=== PATIENT | female | born 1995 | race Caucasian/White ===

== ENCOUNTER 2019-09-29 19:01 | Inpatient (IN) ==
[2019-09-29 12:48] LABS: Protein/Creatinine Ratio,Urine 1.88 mg/mg (0.00-0.20)
[2019-09-29 12:52] LABS: Basophils % 0.5 %; Eosinophils % 0.2 %; Hematocrit 30.7 % (35.3-44.9); Immature Granulocytes % 0.8 % (0-4); Lymphocytes # 1.4 K/mcL (0.6-4.6); Lymphocytes % 22.4 %; Mean Corpuscular HGB Conc 32.6 g/dL (31.6-35.5); Mean Corpuscular Hemoglobin 30.8 pg (28.0-33.3); Mean Corpuscular Volume 94.5 fL (83.0-100.0); Mean Platelet Volume 11.5 fL (9.4-12.4); Monocytes # 0.6 K/mcL (0.0-1.3); Monocytes % 8.8 %; Neutrophils # 4.3 K/mcL (1.6-8.9); Platelet Count 185 K/mcL (140-400); Red Blood Count 3.25 M/mcL (3.82-4.97); Segmented Neutrophils % 67.3 %; White Blood Count 6.3 K/mcL (4.3-11.1)
[2019-09-29 12:59] LABS: Alanine Aminotransferase 5 Units/L (7-52); Aspartate Amino Transferase 13 Units/L (13-39); BUN/Creatinine Ratio 9 (6-26); Blood Urea Nitrogen 6 mg/dL (6-20); Lactate Dehydrogenase 154 Units/L (140-271); Uric Acid 5.4 mg/dL (2.3-7.6); eGFR For African Americans > 60 (> 60); eGFR For Non-African Americans > 60 (> 60)
[2019-09-29 13:01] LABS: Amorphous Sediment,Urine Few per hpf (None-Few); Bacteria,Urine Many per hpf (None-Few); Bilirubin,Urine Negative (Negative); Blood,Urine Trace (Negative); Clarity,Urine Ex.Turbid (Clear); Color,Urine Yellow (Yellow); Glucose,Urine (UA) Normal (Normal); Hyaline Casts,Urine Few per lpf (None Seen); Ketones,Urine Negative (Negative); Leukocyte Esterase,Urine Large (Negative); Nitrite,Urine Negative (Negative); PH,Urine 6.5 pH Units (5.0-8.0); Protein,Urine 30 mg/dL (Neg-Trace); RBC,Urine 30-50 per hpf (0-3); Specific Gravity,Urine < 1.005 (1.010-1.025); Squamous Epithelial Cell,Urine Moderate per hpf (None-Few); Urobilinogen,Urine Normal (Normal); WBC,Urine TNTC per hpf (0-3)
[2019-09-29] MEDS: Betamethasone Acet/SodPhos 30 MG/5 ML VIAL IM SCH (18:29)
[~2019-09-29 19:01] MED LIST: *HR* Labetalol 20 MG/4 ML SYRINGE IVP STA; Azithromycin 500 MG in 0.9 % Sodium Chloride 250 ML IVPB ONE; Famotidine 20 MG/2 ML VIAL IVP PRN; Metoclopramide 10 MG/2 ML VIAL IVP PRN; Naloxone 0.4 MG/ML INJ IVP PRN; Ondansetron 4 MG/2 ML VIAL IVP PRN
[2019-09-29] MEDS ORDERED: Calcium Gluconate 1,000 MG/10 ML VIAL IVP PRN (19:04)
[2019-09-29] MEDS ORDERED: Penicillin G Potassium 5,000,000 UNIT in 0.9 % Sodium Chloride Mini Bag 100 ML IVPB ONE (19:06)
[2019-09-29] MEDS: Ringers Solution, Lactated 1,000 ML ONE (20:09)
[2019-09-29] MEDS: Magnesium Sulf 20 gm/SW 500mL 20 GM/500 ML IV.SOLN IVC SCH (20:18)
[2019-09-29] MEDS: Oxytocin 20 units/ LR 1000 mL 20 UNIT/1,000 ML BAG IVC SCH (20:30)
[2019-09-29] MEDS ORDERED: Oxytocin 20 units/ LR 1000 mL 20 UNIT/1,000 ML BAG IVC ONE (20:33)
[2019-09-29 23:29] LABS: Basophils % 0.3 %; Hematocrit 35.5 % (35.3-44.9); Immature Granulocytes % 1.1 % (0-4); Lymphocytes # 0.8 K/mcL (0.6-4.6); Lymphocytes % 9.5 %; Mean Corpuscular HGB Conc 32.7 g/dL (31.6-35.5); Mean Corpuscular Volume 94.9 fL (83.0-100.0); Mean Platelet Volume 11.2 fL (9.4-12.4); Monocytes # 0.1 K/mcL (0.0-1.3); Monocytes % 0.7 %; Neutrophils # 7.8 K/mcL (1.6-8.9); Platelet Count 215 K/mcL (140-400); Red Blood Count 3.74 M/mcL (3.82-4.97); Segmented Neutrophils % 88.4 %; White Blood Count 8.9 K/mcL (4.3-11.1)
[2019-09-29 23:30] LABS: Hemoglobin 11.6 g/dL (11.5-15.4)
[2019-09-29 23:48] LABS: Alanine Aminotransferase 5 Units/L (7-52); Aspartate Amino Transferase 15 Units/L (13-39); BUN/Creatinine Ratio 9 (6-26); Blood Urea Nitrogen 5 mg/dL (6-20); Lactate Dehydrogenase 185 Units/L (140-271); Uric Acid 5.5 mg/dL (2.3-7.6); eGFR For African Americans > 60 (> 60); eGFR For Non-African Americans > 60 (> 60)
[2019-09-29] MEDS: Penicillin G Potassium 2,500,000 UNIT/105 ML UNIT IVPB SCH (23:50)
[2019-09-30] MEDS: Penicillin G Potassium 2,500,000 UNIT/105 ML UNIT IVPB SCH ×5 (03:48→21:40)
[2019-09-30] MEDS ORDERED: Acetaminophen 325 MG TABLET PO ONE ×2 (04:13→09:28)
[2019-09-30] MEDS: Magnesium Sulf 20 gm/SW 500mL 20 GM/500 ML IV.SOLN IVC SCH (07:57)
[2019-09-30] MEDS ORDERED: miSOPROStoL 25 MCG TABLET PO SCH ×2 (09:22→09:30)
[2019-09-30] MEDS: miSOPROStoL 25 MCG TABLET PO PRN ×2 (09:34→14:30)
[2019-09-30] MEDS ORDERED: Ringers Solution, Lactated 1,000 ML ONE ×2 (11:22→17:01)
[2019-09-30] MEDS ORDERED: Ropivacaine/PF 0.2% 20 ML VIAL ONE (15:54)
[2019-09-30] MEDS ORDERED: *HR* FentaNYL (PF) 100 MCG/2 ML VIAL ONE (15:54)
[2019-09-30] MEDS ORDERED: Epidural Premix (fent/bupiv) 110 ML EP ONE (16:14)
[2019-09-30] MEDS ORDERED: EPHEDrine 50 MG/ML VIAL IVP PRN (16:26)
[2019-09-30] MEDS ORDERED: Epidural Premix (fent/bupiv) 110 ML EP SCH (16:30)
[2019-09-30] MEDS ORDERED: miSOPROStoL 25 MCG TABLET PO PRN (18:38)
[2019-09-30] MEDS ORDERED: Betamethasone Acet/SodPhos 30 MG/5 ML VIAL IM SCH (19:30)
[2019-09-30] MEDS: Betamethasone Acet/SodPhos 30 MG/5 ML VIAL IM SCH (19:36)
[2019-09-30] MEDS: Oxytocin 20 units/ LR 1000 mL 20 UNIT/1,000 ML BAG IVC SCH (23:40)
[2019-10-01] MEDS ORDERED: Ringers Solution, Lactated 1,000 ML ONE ×2 (00:29→17:51)
[2019-10-01] MEDS: Penicillin G Potassium 2,500,000 UNIT/105 ML UNIT IVPB SCH (01:40)
[2019-10-01] MEDS: Magnesium Sulf 20 gm/SW 500mL 20 GM/500 ML IV.SOLN IVC SCH (02:40)
[2019-10-01] MEDS ORDERED: Magnesium Sulf 20 gm/SW 500mL 20 GM/500 ML IV.SOLN IVC SCH (07:23)
[2019-10-01] MEDS ORDERED: Benzocaine/Menthol 56 GM AEROSOL SPRAY TP PRN (07:23)
[2019-10-01] MEDS ORDERED: Oxytocin 20 units/ LR 1000 mL 20 UNIT/1,000 ML BAG IVC SCH (07:23)
[2019-10-01] MEDS ORDERED: Lanolin 7 G OINT...G. TP PRN (07:23)
[2019-10-01] MEDS: Prenatal Vit/FA 1 EACH TABLET PO SCH (08:07)
[2019-10-01] MEDS: Ringers Solution, Lactated 1,000 ML ONE ×2 (08:07→17:56)
[2019-10-01] MEDS ORDERED: Acetaminophen 325 MG TABLET PO SCH (12:00)
[2019-10-01] MEDS ORDERED: Ibuprofen 600 MG TABLET PO SCH (12:00)
[2019-10-01] MEDS ORDERED: Ringers Solution, Lactated 1,000 ML IVC SCH (18:00)
[2019-10-02 06:39] LABS: Basophils % 0.2 %; Hematocrit 28.5 % (35.3-44.9); Hemoglobin 9.3 g/dL (11.5-15.4); Immature Granulocytes % 1.4 % (0-4); Lymphocytes # 2.6 K/mcL (0.6-4.6); Lymphocytes % 19.6 %; Mean Corpuscular HGB Conc 32.6 g/dL (31.6-35.5); Mean Corpuscular Hemoglobin 31.1 pg (28.0-33.3); Mean Corpuscular Volume 95.3 fL (83.0-100.0); Monocytes # 0.8 K/mcL (0.0-1.3); Monocytes % 6.1 %; Neutrophils # 9.6 K/mcL (1.6-8.9); Nucleated Red Blood Cells 0.2 /100 WBC (0); Platelet Count 230 K/mcL (140-400); Red Blood Count 2.99 M/mcL (3.82-4.97); Red Cell Distribution Width 12.5 % (11.5-14.5); Segmented Neutrophils % 72.7 %; White Blood Count 13.2 K/mcL (4.3-11.1)
[2019-10-02 06:58] LABS: Alanine Aminotransferase 8 Units/L (7-52); Aspartate Amino Transferase 23 Units/L (13-39); BUN/Creatinine Ratio 10 (6-26); Blood Urea Nitrogen 7 mg/dL (6-20); Lactate Dehydrogenase 240 Units/L (140-271); Uric Acid 6.2 mg/dL (2.3-7.6); eGFR For African Americans > 60 (> 60); eGFR For Non-African Americans > 60 (> 60)
[2019-10-02] MEDS: Prenatal Vit/FA 1 EACH TABLET PO SCH (07:34)
[2019-10-03] MEDS: Prenatal Vit/FA 1 EACH TABLET PO SCH (07:49)
[2019-10-03 08:04] VITALS: BP 151/92
== END 2019-10-03 09:44 | disposition home or self-care (01) | DRG 788 ==
LOC: 1NENULAB → 1NENUOBS 10-01 06:32
PROVIDERS: ADMIT Obstetrics & Gynecology; ATTEND Obstetrics & Gynecology

== ENCOUNTER 2021-12-09 17:44 | Inpatient (IN) ==
[~2021-12-09 17:44] MED LIST changes: -*HR* Labetalol 20 MG/4 ML SYRINGE IVP STA; +*HR* Nalbuphine 10 MG/ML AMPUL IV PRN; -Azithromycin 500 MG in 0.9 % Sodium Chloride 250 ML IVPB ONE; +Azithromycin 500 MG in 0.9 % Sodium Chloride 250 ML IVPB PRN; +EPHEDrine 50 MG/ML VIAL IVP PRN; +Lidocaine 1% 20 ML MDV INFILT PRN
[2021-12-09] MEDS ORDERED: Epidural Premix (fent/bupiv) 110 ML EP SCH (17:45)
[2021-12-09] MEDS ORDERED: Ringers Solution, Lactated 1,000 ML IVC SCH (17:45)
[2021-12-09] MEDS ORDERED: Oxytocin 30 UNIT/503 ML BAG IVC SCH (18:00)
[2021-12-09 18:02] LABS: Basophils % 0.3 %; Eosinophils % 0.3 %; Hematocrit 31.1 % (35.3-44.9); Immature Granulocytes % 0.4 % (0-4); Lymphocytes # 1.7 K/mcL (0.6-4.6); Lymphocytes % 24.5 %; Mean Corpuscular HGB Conc 32.2 g/dL (31.6-35.5); Mean Corpuscular Volume 90.1 fL (83.0-100.0); Mean Platelet Volume 10.7 fL (9.4-12.4); Monocytes # 0.4 K/mcL (0.0-1.3); Monocytes % 6.5 %; Neutrophils # 4.6 K/mcL (1.6-8.9); Platelet Count 239 K/mcL (140-400); Red Blood Count 3.45 M/mcL (3.82-4.97); Red Cell Distribution Width 14.3 % (11.5-14.5); White Blood Count 6.8 K/mcL (4.3-11.1)
[2021-12-09] MEDS ORDERED: Oxytocin 30 UNIT/503 ML BAG IVC ONE (18:22)
[2021-12-09] MEDS ORDERED: Ringers Solution, Lactated 1,000 ML ONE (18:23)
[2021-12-09 18:29] LABS: Alanine Aminotransferase 9 Units/L (7-52); Aspartate Amino Transferase 17 Units/L (13-39); BUN/Creatinine Ratio 13 (6-26); Blood Urea Nitrogen 9 mg/dL (6-20); Lactate Dehydrogenase 159 Units/L (140-271); Uric Acid 4.5 mg/dL (2.3-7.6)
[2021-12-09 20:06] LABS: Protein/Creatinine Ratio,Urine 0.1 mg/mg (0.00-0.20)
[2021-12-09 20:22] LABS: Amphetamine Screen,Urine Negative ng/mL (Cutoff=1000); Barbiturate Screen,Urine Negative ng/mL (Cutoff=200); Benzodiazepines Screen,Urine Negative ng/mL (Cutoff=200); Cannabinoid Screen,Urine Negative ng/mL (Cutoff = 50); Cocaine Screen,Urine Negative ng/mL (Cutoff= 300); Opiate Screen,Urine Negative ng/mL (Cutoff=300); Phencyclidine Screen,Urine Negative ng/mL (Cutoff=25)
[2021-12-10] MEDS ORDERED: Ondansetron ODT 4 MG TAB.RAPDIS SL PRN ×2 (03:02→06:00)
[2021-12-10] MEDS ORDERED: Benzocaine/Menthol 56 GM AEROSOL SPRAY TP PRN (03:02)
[2021-12-10] MEDS ORDERED: OXYTOCIN/RINGERS LACTATE 10 UNIT/166.6 ML BAG IVC ONE ×2 (03:02→05:51)
[2021-12-10] MEDS ORDERED: Lanolin 7 G OINT...G. TP PRN ×2 (03:02→05:51)
[2021-12-10] MEDS ORDERED: Measles/Mumps/Rubella Vacc 0.5 ML VIAL SQ PRN ×2 (03:02→05:51)
[2021-12-10] MEDS ORDERED: Rho Immune Globulin 1,500 UNIT SYRINGE IM PRN ×2 (03:02→05:51)
[2021-12-10] MEDS ORDERED: Oxytocin 30 UNIT/503 ML BAG IVC SCH ×3 (03:15→05:51)
[2021-12-10] MEDS ORDERED: Acetaminophen 325 MG TABLET PO SCH (03:15)
[2021-12-10] MEDS: Ibuprofen 400 MG TABLET PO ONE ×2 (03:45→03:47)
[2021-12-10] MEDS ORDERED: Naloxone 0.4 MG/ML INJ IVP PRN (05:51)
[2021-12-10] MEDS ORDERED: Lidocaine 1% 20 ML MDV INFILT PRN (05:51)
[2021-12-10] MEDS ORDERED: Ondansetron 4 MG/2 ML VIAL IVP PRN (06:00)
[2021-12-10] MEDS ORDERED: Ibuprofen 600 MG TABLET PO SCH (06:03)
[2021-12-10] MEDS: Benzocaine/Menthol 56 GM AEROSOL SPRAY TP PRN (07:49)
[2021-12-10] MEDS: Prenatal Vit/FA 1 EACH TABLET PO SCH (07:49)
[2021-12-10] MEDS ORDERED: Prenatal Vit/FA 1 EACH TABLET PO SCH (09:00)
[2021-12-10] MEDS: Acetaminophen 325 MG TABLET PO SCH ×2 (14:15→22:45)
[2021-12-10] MEDS: Ibuprofen 600 MG TABLET PO SCH ×2 (14:16→22:44)
[2021-12-10 20:53] VITALS: O2SAT 100
[2021-12-11] MEDS: Acetaminophen 325 MG TABLET PO SCH (04:02)
[2021-12-11] MEDS: Ibuprofen 600 MG TABLET PO SCH (04:02)
[2021-12-11 07:13] VITALS: BP 121/81; PULSE 65; TEMP 98.3
[2021-12-11] MEDS: Prenatal Vit/FA 1 EACH TABLET PO SCH (08:42)
[2021-12-11] MEDS: Benzocaine/Menthol 56 GM AEROSOL SPRAY TP PRN (08:43)
== END 2021-12-11 12:50 | disposition home or self-care (01) | DRG 807 ==
LOC: 1NENULAB → 1NENUOBS 12-10 05:45
PROVIDERS: ADMIT Advanced Practice Midwife; ATTEND Advanced Practice Midwife

== ENCOUNTER 2021-12-16 22:47 | Inpatient (IN) ==
[2021-12-17] MEDS ORDERED: Ringers Solution, Lactated 1,000 ML ONE ×2 (01:03→13:33)
[2021-12-17] MEDS ORDERED: Calcium Gluconate 1,000 MG/10 ML VIAL IVP PRN (01:09)
[2021-12-17] MEDS ORDERED: Benzocaine/Menthol 56 GM AEROSOL SPRAY TP PRN (01:10)
[2021-12-17] MEDS ORDERED: Lanolin 7 G OINT...G. TP PRN (01:10)
[2021-12-17] MEDS ORDERED: Ondansetron ODT 4 MG TAB.RAPDIS SL PRN (01:10)
[2021-12-17] MEDS: Magnesium Sulf 20 gm/SW 500mL 20 GM/500 ML IV.SOLN IVC SCH ×3 (01:27→19:50)
[2021-12-17] MEDS: Acetaminophen 325 MG TABLET PO SCH ×4 (01:45→21:30)
[2021-12-17 02:04] LABS: Bilirubin,Urine Negative (Negative); Blood,Urine Negative (Negative); Clarity,Urine Clear (Clear); Color,Urine Colorless (Yellow); Glucose,Urine (UA) Normal (Normal); Ketones,Urine Negative (Negative); Leukocyte Esterase,Urine Negative (Negative); Nitrite,Urine Negative (Negative); PH,Urine 6.5 pH Units (5.0-8.0); Protein,Urine Negative (Neg-Trace); Specific Gravity,Urine 1.009 (1.010-1.025); Urobilinogen,Urine Normal (Normal)
[2021-12-17 02:14] LABS: Protein/Creatinine Ratio,Urine 0.14 mg/mg (0.00-0.20)
[2021-12-17] MEDS: Ibuprofen 600 MG TABLET PO SCH ×4 (08:30→21:31)
[2021-12-17] MEDS: Prenatal Vit/FA 1 EACH TABLET PO SCH (08:30)
[2021-12-18 00:57] VITALS: O2SAT 99
[2021-12-18] MEDS: Ibuprofen 600 MG TABLET PO SCH (05:05)
[2021-12-18] MEDS: Acetaminophen 325 MG TABLET PO SCH (05:05)
[2021-12-18 06:57] VITALS: BP 117/79; PULSE 70; TEMP 98.6
[2021-12-18] MEDS: Prenatal Vit/FA 1 EACH TABLET PO SCH (09:34)
== END 2021-12-18 09:40 | disposition home or self-care (01) | DRG 776 ==
LOC: 1NENUOBS
PROVIDERS: ADMIT Student in an Organized Health Care Education/Training Program; ATTEND Student in an Organized Health Care Education/Training Program